=== PATIENT | male | born 1980 | race Two or more races ===

== ENCOUNTER → 2016-12-17 | Outpatient (CLI) | payer BC ==
[2016-12-17 09:21] LABS: C-REACTIVE PROTEIN 0.4 mg/dL (0.0-0.9); URIC ACID 4.3 mg/dL (2.6-7.2)
[2016-12-18 18:24] LABS: *ANAANTI-SCLERODERMA-70 AB <0.2 AI (0.0-0.9)
== END ==
LOC: LAB 07:48
PROVIDERS: ATTEND Family Medicine
DX: Z13.220 Encounter for screening for lipoid disorders (principal); M25.50 Pain in unspecified joint
CPT/HCPCS: 36415; 80061-TC; 84550-TC; 85652-TC; 86140-TC; 86160; 86225; 86235; 86431-TC

== ENCOUNTER 2017-01-18 09:36 | Outpatient (CLI) | payer BC | END 2017-01-18 23:59 | disposition home or self-care (01) | LOC: US 09:36 | PROVIDERS: ATTEND Family Medicine | DX: R10.13 Epigastric pain (principal); R10.31 Right lower quadrant pain | CPT/HCPCS: 76700-TC; 76882 ==

== ENCOUNTER 2017-02-18 09:14 | Outpatient (CLI) | payer BC ==
[2017-02-18 09:42] LABS: APPEARANCE,URINE CLEAR (CLEAR); BILIRUBIN,URINE NEGATIVE (NEGATIVE); BLOOD, URINE NEGATIVE Ery/uL (NEGATIVE); COLOR,URINE YELLOW (YELLOW); KETONES,URINE NEGATIVE (NEGATIVE); LEUKOCYTE ESTERASE ,URINE NEGATIVE (NEGATIVE); NITRITE, URINE NEGATIVE (NEGATIVE); PROTEIN,URINE NEGATIVE (NEGATIVE); UGLUCOSE NEGATIVE (NEGATIVE); UROBILINOGEN,URINE 0.2 EU/dL (0.2)
[2017-02-18 09:43] LABS: BASOPHILS % (AUTO) 0.3 % (0.0-2.0); EOSINOPHILS % (AUTO) 0.7 % (0.0-6.0); HEMATOCRIT 47 % (39-51); LYMPHOCYTES # (AUTO) 1.5 /CMM (0.8-4.8); LYMPHOCYTES % (AUTO) 35.3 % (20.0-44.0); MEAN CORPUSCULAR HEMOGLOBIN 30 PG (26.0-33.0); MEAN CORPUSCULAR HGB CONC 34 g/dl (31.0-36.0); MEAN CORPUSCULAR VOLUME 86 fL (80-96); MONOCYTES # (AUTO) 0.3 /CMM (0.1-1.30); MONOCYTES % (AUTO) 5.9 % (2.0-12.0); NEUTROPHILS # (AUTO) 2.5 /CMM (1.8-8.9); NEUTROPHILS % (AUTO) 57.8 % (43.0-81.0); PLATELET COUNT (AUTO) 163 /CMM (150-450); RED BLOOD CELL COUNT(AUTO) 5.41 MIL/uL (4.5-6.0); WHITE BLOOD COUNT (AUTO) 4.4 K/uL (4.3-11.0)
[2017-02-18 10:16] LABS: ALBUMIN 4.5 g/dL (3.4-5.0); BILIRUBIN,TOTAL 0.6 mg/dL (0.2-1.0); CALCIUM, SERUM 9.3 mg/dL (8.5-10.1); CREATININE 1.1 mg/dL (0.6-1.3); TOTAL PROTEIN, SERUM 8.1 g/dL (6.4-8.2)
[2017-02-18] MEDS ORDERED: CT SWABBABLE VALVE TRANS SET 1 EA INFUS.SET MC ONE (11:05)
[2017-02-18] MEDS ORDERED: IOHEXOL-300 100 ML VIAL IV ONE (11:05)
[2017-02-18] MEDS ORDERED: IV NS 0.9% 250 ML IV ONE (11:05)
== END 2017-02-18 23:59 | disposition home or self-care (01) ==
LOC: CT 09:14
PROVIDERS: ATTEND Family Medicine
DX: K21.9 Gastro-esophageal reflux disease without esophagitis (principal)
CPT/HCPCS: 36415; 71020; 74178; 80053; 81001; 82150; 83690; 85025; J7050; Q9967; 81000-TC